=== PATIENT | female | born 1940 | race Caucasian/White ===

== ENCOUNTER 2016-12-10 14:49 | Emergency (ER) | payer OTHER ==
[2016-12-10] MEDS ORDERED: DUONEB (A & A) INH ONE (15:27)
--- NOTE | 2016-12-10 15:45 | Diag Imaging Result Document ---
PROCEDURE NAME: FLAT/UPRIGHT ABD/1 VIEW CHEST - 12/10/2016 PLAIN RADIOGRAPH OF THE CHEST AND ABDOMEN, 3 VIEWS.: COMPARISON: None available. FINDINGS: There are unremarkable bowel gas and stool patterns. There is no obstructive pattern. There is no evidence of large-volume free abdominal gas. There is no discrete organomegaly. There is a calcified granuloma in the left upper lung zone. The lungs are clear otherwise. Cardiac silhouette and central vasculature are grossly unremarkable. IMPRESSION: No definite acute pathology.
[2016-12-10 15:47] LABS: MANUAL DIFF NEEDED? NO
--- NOTE | 2016-12-10 16:01 | PROVIDER DOCUMENTATION ---
HPI-Abdominal Pain/GI Problem - General Source: patient - History of Present Illness-ABD Nature of Presenting Problems: 76 Yo F presents to the ER with the complaint of abdominal pain and bloating X1 week. Pt states it started generalized abdomen, then went to her RUQ and then to her RLQ. Currently complains of RLQ pain and nausea. Denies any vomiting or diarrhea. Abdominal Pain Onset Location: reports: RLQ Pain Radiation: reports: RLQ Onset/Duration: reports: 1 week ago Timing: reports: still present <Addie Macias - Last Filed: 12/10/16 17:44> <Javy Fernández - Last Filed: 12/10/16 17:56> - General Chief Complaint: Abdominal Pain Stated Complaint: ABD PAIN Time Seen by Provider: 12/10/16 15:24 Allergies/Adverse Reactions: Patient Allergies Allergy/AdvReac Type Severity Reaction Status Date / Time Penicillins Allergy RASH Verified 04/02/14 18:51 Home Medications: Home Medication List Medication Instructions Recorded Confirmed Last Taken Type Atenolol 50 mg PO DAILY 04/02/14 04/02/14 Unknown History Ciprofloxacin HCl [Cipro] 250 mg PO BID #14 tablet 04/02/14 Unknown Rx Nitrofurantoin Macrocrystal 100 mg PO DAILY 04/02/14 04/02/14 Unknown History [Nitrofurantoin] Omeprazole 40 mg PO DAILY 04/02/14 04/02/14 Unknown History Zolpidem [Ambien] 5 mg PO DAILY 04/02/14 04/02/14 Unknown History Acetaminophen with Codeine 1 each PO Q6H PRN PRN #14 tablet 12/10/16 Unknown Rx [Tylenol with Codeine #3 Tablet] Ciprofloxacin HCl [Cipro] 500 mg PO BID #14 tablet 12/10/16 Unknown Rx Review of Systems - Adult - REVIEW OF SYSTEMS - ADULT Constitutional: denies: chills, fever Eyes: reports: no symptoms reported Ears, Nose, Mouth & Throat: reports: no symptoms reported Cardiovascular: reports: no symptoms reported Respiratory: denies: cough, shortness of breath Gastrointestinal: reports: abdominal pain, nausea. denies: diarrhea, vomiting Genitourinary: reports: no symptoms reported Musculoskeletal: denies: back pain, joint pain Integumentary: reports: no symptoms reported Neurological: reports: no symptoms reported Psychiatric: reports: no symptoms reported Endocrine: reports: no symptoms reported Hematologic/Lymphatic: reports: no symptoms reported Allergic/Immunologic: reports: no symptoms reported All Other Systems: Reviewed and Negative <Addie Macias - Last Filed: 12/10/16 17:44> Past History - Adult - PAST MEDICAL HISTORY-ADULT Review of Records: reports: Nursing Assessment Review, Medications Reviewed Major Childhood Illnesses: reports: denies history Cardiovascular: reports: HTN Respiratory: reports: denies history Gastrointestinal: reports: denies history Obstetrical/Gynecological: reports: denies history Genitourinary: reports: denies history Musculoskeletal: reports: denies history Neurological: reports: denies history Endocrine/Immune: reports: thyroid disorder Other Conditions: reports: denies history - PRIOR SURGERIES/PROCEDURES Surgical/Procedure History: reports: reviewed, not pertinent - IMMUNIZATION STATUS Childhood Immunizations: See Nurse Assessment Flu Vaccine: See Nurse Assessment - FAMILY HISTORY Family History: reviewed, not pertinent <Addie Macias - Last Filed: 12/10/16 17:44> Physical Exam-General - PHYSICAL EXAM-ADULT Initial Vital Signs Reviewed: Yes - CONSTITUTIONAL General Appearance: appears well, alert - EYES Eyes: PERRL/EOMI, pink conjunctivae - HEAD, EARS, NOSE, MOUTH & THROAT HENMT: normocephalic/atraumatic, normal ENT inspection - NECK Neck: full range of motion, supple - RESPIRATORY Respiratory: no respiratory distress, no accessory muscle use - CARDIOVASCULAR Cardiovascular: normal peripheral pulses, regular rate, rhythm - GASTROINTESTINAL (ABDOMEN) Abdominal Exam: normal bowel sounds, soft, tenderness (rlq) - MUSCULOSKELETAL Back Exam: no CVA tenderness, no vertebral tenderness Extremity: normal range of motion, normal gait - SKIN Integumentary: normal color, warm/dry - NEUROLOGIC Neurologic: grossly normal, no motor/sensory deficits - PSYCHIATRIC Psych/Mental Status: normal mood/affect, normal thought content, normal thought process, oriented x 3 <Addie Macias - Last Filed: 12/10/16 17:44> Progress - PLAN OF CARE/RESULTS Progress/Plan/Lab Results: Vital Signs Temp Pulse Resp BP Pulse Ox 12/10/16 15:38 78 16 98 12/10/16 14:53 99.3 F 109 H 18 157/93 100 Penicillins Allergy (Verified 04/02/14 18:51) RASH Atenolol 50 mg PO DAILY 04/02/14 Ciprofloxacin HCl [Cipro] 250 mg PO BID #14 tablet 04/02/14 Nitrofurantoin Macrocrystal [Nitrofurantoin] 100 mg PO DAILY 04/02/14 Omeprazole 40 mg PO DAILY 04/02/14 Zolpidem [Ambien] 5 mg PO DAILY 04/02/14 Dietary Diet NPO Start Sat Mar 18 1456 Laboratory 12/10/16 12/10/16 12/10/16 15:35 15:35 14:00 WBC 12.39 H RBC 4.08 L Hgb 12.6 Hct 37.3 MCV 91.4 MCH 30.9 MCHC 33.8 RDW Std Deviation 13.3 Plt Count 242 MPV 10.3 Immature Gran % (Auto) 0.2 Neut % (Auto) 70.5 Lymph % (Auto) 16.3 L [place] % (Auto) 12.2 H Eos % (Auto) 0.6 Baso % (Auto) 0.2 Immature Gran # (Auto) 0.02 Neut # (Auto) 8.75 H Lymph # (Auto) 2.02 [place] # (Auto) 1.51 H Eos # (Auto) 0.07 Baso # (Auto) 0.02 Sodium 138 Potassium 3.6 Chloride 101 Carbon Dioxide 26 Anion Gap 12 BUN 18 Creatinine 0.6 Estimated GFR/1.73 m2 > 60 BUN/Creatinine Ratio 30 Glucose 115 H Calculated Osmolality 278 Calcium 9.2 Total Bilirubin 0.50 AST 21 ALT 11 Alkaline Phosphatase 76 Total Protein 7.5 Albumin 4.3 Globulin 3.0 Albumin/Globulin Ratio 1.0 Amylase 99 Lipase 63 H Urine Source CLEAN CATCH Urine Color YELLOW Urine Clarity CLEAR Urine pH 7.0 Ur Specific [place] 1.010 Urine Protein TRACE A Urine Ketones NEGATIVE Urine Blood 3+ A Urine Nitrite NEGATIVE Urine Bilirubin NEGATIVE Urine Urobilinogen NORMAL Urine Microscopic RBC 10-20 A Urine WBC 2+ A Urine Microscopic WBC 10-20 A Ur Epithelial Cells <10 Urine Crystals NONE SEEN Urine Bacteria 1+ Urine Casts NONE SEEN Urine Yeast NONE SEEN Urine Glucose NEGATIVE Orders Category Date Time Status NPO Diet 12/10/16 14:56 Active FLAT/UPRIGHT ABD/1 VIEW CHEST [RAD] Stat Exams 12/10/16 14:57 Completed US ABDOMEN-COMPLETE [US] Stat Exams 12/10/16 16:11 Taken US PELVIC NON-ROUTE DELIVERY SUPERVISOR COMPLETE [US] Stat Exams 12/10/16 15:58 Taken AMYLASE [CHEM] Stat Lab 12/10/16 15:35 Completed CBC WITH ELECTRONIC DIFF [HEME] Stat Lab 12/10/16 15:35 Completed COMPREHENSIVE METABOLIC PANEL [CHEM] Stat Lab 12/10/16 15:35 Completed LIPASE [CHEM] Stat Lab 12/10/16 15:[address] W/POSS RFLX CULT [URINALYSIS] Stat Lab 12/10/16 14:00 Completed URINE CULTURE [RM] Routine Lab 12/10/16 16:17 Ordered Albuterol 2.5MG/Ipratrop 0.5MG [Duoneb (A & A)] Med 12/10/16 15:27 Discontinued 3 ml INH NOW ONE - ULTRASOUND (By Radiology) 1 US Study: Abdomen Impression: Normal (contracted GB but no stones seen, unremarkable otherwise, per radiologist) 2 US Study: Pelvic Impression: Normal (limited due to gas, nonvisualization of the uterus or either ovary, per radiologist) <Addie Macias - Last Filed: 12/10/16 17:44> Departure - Departure Time of Disposition Order: 17:30 Certified Medical Emergency: Emergent <Addie Macias - Last Filed: 12/10/16 17:44> - Departure Time of Disposition Order: 17:56 Certified Medical Emergency: Emergent <Javy Fernández - Last Filed: 12/10/16 17:56> - Departure DIAGNOSIS: UTI (urinary tract infection) Qualifiers: Urinary tract infection type: site unspecified Hematuria presence: with hematuria Qualified Code(s): N39.0 - Urinary tract infection, site not specified Disposition: HOME 01 Condition: Stable Additional Instructions: ED Follow Up Instructions: You have been treated by a care provider in the Emergency Department. These instructions are being provided to you so you can have an understanding of how to care for yourself upon discharge. Upon discharge from the Emergency Department, you are responsible for making arrangements for follow-up care by a physician of your choice. Take all prescribed medications as directed. Return to the Emergency Department immediately for any new or worsening symptoms. You may call the Physician Referral phone number at [phone] to obtain a list of Physicians who are taking new patients. Prescriptions: Ciprofloxacin HCl [Cipro] 500 mg PO BID #14 tablet Acetaminophen with Codeine [Tylenol with Codeine #3 Tablet] 1 each PO Q6H PRN PRN #14 tablet PRN Reason: Pain Referrals: Raeann Lopes MD [Primary Care Provider] - Attestation - Scribe Verification/Attestation Scribe:: Addie Macias Acting as Scribe for:: Javy Fernández Scribe documention review:: This chart was documented by a scribe and accurately reflects the service the provider performed and the decisions made by the provider. <Addie Macias - Last Filed: 12/10/16 17:44> Physician Attestation
[2016-12-10 16:02] LABS: URINE SOURCE CLEAN CATCH
[2016-12-10 16:06] LABS: BASO% 0.2 % (0.0-0.8); EOS# 0.07 X1000 (0.0-0.7); EOS% 0.6 % (0.0-10.0); HEMATOCRIT 37.3 % (37.0-47.0); HEMOGLOBIN 12.6 g/dL (12.0-16.0); IMM GRAN# 0.02 X1000 (0.0-0.04); IMM GRAN% 0.2 % (0.0-0.5); LYMPH# 2.02 X1000 (1.2-3.4); LYMPH% 16.3 % (20.5-51.1); MCH 30.9 PG (27-31); MCHC 33.8 g/dL (33-37); MCV 91.4 FL (81-99); MONO# 1.51 X1000 (0.11-0.59); MONO% 12.2 % (1.7-9.3); MPV 10.3 FL (7.4-10.4); NEUT% 70.5 % (42.2-75.2); PLT 242 X1000 (130-400); RBC 4.08 XMIL (4.2-5.4)
[2016-12-10 16:16] LABS: BILIRUBIN URINE NEGATIVE (NEGATIVE); BLOOD URINE 3+ (NEGATIVE); CLARITY CLEAR (CLEAR); COLOR YELLOW; GLUCOSE URINE NEGATIVE (NEGATIVE); LEUKOCYTES URINE 2+ (NEGATIVE); NITRITE URINE NEGATIVE (NEGATIVE); PROTEIN URINE TRACE mg/dL (NEGATIVE); URINE CULTURE PL NEEDED? YES; URINE EPITHELIAL CELLS <10 /HPF (<10); UROBILINOGEN URINE NORMAL
[2016-12-10 16:17] LABS: URINE CAST NONE SEEN /LPF; URINE CRYSTAL NONE SEEN /HPF
[2016-12-10 16:19] LABS: AGAP 12; ALBUMIN 4.3 g/dL (3.5-5.0); ALKALINE PHOSPHATASE 76 U/L (32-104); AMYLASE 99 U/L (20-200); BUN 18 mg/dL (8-22); CALCIUM 9.2 mg/dL (8.8-10.2); CHLORIDE 101 mmol/L (98-107); COSMO 278; GOT 21 U/L (10-30); GPT 11 U/L (10-36); LIPASE 63 U/L (13-60); POTASSIUM 3.6 mmol/L (3.5-5.1); SODIUM 138 mmol/L (136-145); TCO2 26 mmol/L (25-35); TOTAL PROTEIN 7.5 g/dL (6.3-8.3)
[2016-12-10 18:03] VITALS: BP 131/77
--- NOTE | 2016-12-10 18:06 | Diag Imaging Result Document ---
PROCEDURE NAME: US PELVIC NON-DISASSEMBLER COMPLETE - 12/10/2016 PELVIC ULTRASOUND WITH TRANSABDOMINAL PROBE: COMPARISON: None available. FINDINGS: The patient declined the endovaginal probe. This study is very limited due to overlying bowel gas. The uterus is not visualized. Reportedly, the right ovary has been removed. The left ovary could not be visualized. No discrete adnexal masses are identified. No free fluid is identified in the pelvis. IMPRESSION: Very limited study due to excessive bowel gas with nonvisualization of the uterus or either ovary.
--- NOTE | 2016-12-10 18:08 | Diag Imaging Result Document ---
PROCEDURE NAME: US ABDOMEN-COMPLETE - 12/10/2016 COMPLETE ABDOMINAL ULTRASOUND: COMPARISON: None available. FINDINGS: The gallbladder is contracted. No discrete stones, wall thickening, or pericholecystic fluid is identified. The common bile duct is normal in diameter. Sonographic Black sign was reported to be negative. There is a 2.3 cm simple appearing hepatic cyst. The liver is unremarkable, otherwise. Portal venous flow is hepatopetal. The visualized pancreas, spleen, aorta, IVC, and kidneys are grossly unremarkable. IMPRESSION: 1. Incidental simple appearing hepatic cyst. 2. Contracted gallbladder with no gross abnormalities. 3. Essentially unremarkable, otherwise.
== END 2016-12-10 18:02 | disposition home or self-care (01) ==
LOC: P.ED 14:49
DX: N39.0 Urinary tract infection, site not specified (principal); R10.31 Right lower quadrant pain; R11.0 Nausea; I10 Essential (primary) hypertension; E07.9 Disorder of thyroid, unspecified; Z79.899 Other long term (current) drug therapy
CPT/HCPCS: 74022; 76700; 76856; 80053; 81001; 82150; 83690; 85025; 87088; 94640